=== PATIENT | female | born 1995 | race Caucasian/White ===

== ENCOUNTER 2016-07-20 13:45 | Emergency (ER) | payer BC ==
[2016-07-20 14:12] VITALS: BP 108/67
--- NOTE | 2016-07-20 14:36 | UC ---
General HPI - HPI Summary HPI Summary: two days of sore throat. no fever. no cough. she has had strep throat 4x this past year with the last episode may treated with penicillin. swallowing makes it worse. - History of Current Complaint Chief Complaint: UCRespiratory Stated Complaint: SORE THROAT Time Seen by Provider: 07/20/16 14:07 Hx Obtained From: Patient Onset Severity: Moderate Current Severity: Moderate - Allergy/Home Medications Allergies/Adverse Reactions: Allergies Allergy/AdvReac Type Severity Reaction Status Date / Time Sulfa Antibiotics Allergy Intermediate Rash Verified 07/20/16 14:12 Home Medications: Home Medications Norgestrel & Ethinyl Estradiol [Cryselle-28] 1 tab PO DAILY 07/20/16 [History Confirmed 07/20/16] PMH/Surg Hx/FS Hx/Imm Hx Endocrine History Of: Denies: Diabetes Cardiovascular History Of: Denies: Congestive Heart Failure - Surgical History Surgical History: Yes Surgery Procedure, Year, and Place: right shoulder - Social History Occupation: Student Alcohol Use: Occasionally Substance Use Type: None Smoking Status (MU): Never Smoked Tobacco - Immunization History Most Recent Tetanus Shot: 2006 Review of Systems ENT: Sore Throat All Other Systems Reviewed And Are Negative: Yes Physical Exam Triage Information Reviewed: Yes Appearance: Well-Appearing, No Pain Distress, Well-Nourished Vital Signs: Initial Vital Signs Temp 99.2 F 07/20/16 14:08 Pulse 79 07/20/16 14:08 Resp 16 07/20/16 14:08 BP 108/67 07/20/16 14:08 Pulse Ox 100 07/20/16 14:08 Vital Signs Reviewed: Yes Eye Exam: Normal Eyes: Positive: Conjunctiva Clear ENT: Positive: Hearing grossly normal, Pharyngeal erythema, Tonsillar swelling, Tonsillar exudate. Negative: Pharynx normal, Nasal congestion, TMs normal, TM bulging, TM dull, TM red - Left TM has ear tube in place., Trismus, Muffled/ hoarse voice Neck exam: Normal Neck: Positive: Supple, Nontender, No Lymphadenopathy Respiratory Exam: Normal Respiratory: Positive: Chest non-tender Cardiovascular Exam: Normal Cardiovascular: Positive: RRR. Negative: Tachycardia, Bradycardia Abdominal Exam: Normal Abdomen Description: Positive: Nontender, No Organomegaly Bowel Sounds: Positive: Present Musculoskeletal Exam: Normal Musculoskeletal: Positive: Strength Intact, No Edema Neurological Exam: Normal Neurological: Positive: Alert, Muscle Tone Normal Psychological Exam: Normal Skin Exam: Normal Skin: Positive: rashes Course/Dx - Course Course Of Treatment: strep positive 4x this year. augmentin. f/u with her ent. - Differential Dx - Multi-Symptom Provider Diagnoses: strep pharyngitis. Discharge - Discharge Plan Condition: Good Disposition: HOME Prescriptions: Amoxicillin/Clavulanate TAB* [Augmentin TAB 875*] 875 mg PO BID #14 tab Patient Education Materials: Strep Throat (ED) Referrals: Deedee Albert [Primary Care Provider] - Additional Instructions: follow up with your primary care doctor.
== END 2016-07-20 14:45 | disposition home or self-care (01) ==
LOC: UCCORT 13:45
DX: J02.0 Streptococcal pharyngitis (principal); Z88.2 Allergy status to sulfonamides
CPT/HCPCS: 87651; 99212; G0463

== ENCOUNTER 2023-10-02 05:27 | Inpatient (IN) ==
[2023-10-02] MEDS: Lactated Ringers 1000 ml BAG 1,000 ML IV SCH (06:30)
[2023-10-02 06:37] LABS: ABS Basophils 0.1 10^3/uL (0.0-0.1); ABS Eosinophils 0.2 10^3/uL (0.0-0.5); ABS Lymphocytes 2.4 10^3/uL (1.0-4.8); ABS Monocytes 0.9 10^3/uL (0.0-0.9); ABS Neutrophils 8.1 10^3/uL (1.5-7.6); ABS Nucleated RBC 0.01 10^3/ul; Eosinophil % 1.5 %; Hematocrit 34.9 % (35-45); Hemoglobin 12.2 g/dL (11.5-14.3); Lymphocyte % 20.1 %; Mean Corpuscular Hemoglobin 33.7 pg (27-33); Mean Corpuscular Volume 96.3 fL (80-97); Mean Platelet Volume 8.4 fL (7.5-11.2); Platelet Count 283 10^3/uL (150-450); Red Blood Count 3.63 10^6/uL (3.63-4.92); Red Cell Distribution Width 13.2 % (12-17); White Blood Count 11.7 10^3/uL (3.8-11.8)
[2023-10-02] MEDS ORDERED: Ondansetron 4 mg VIAL 2 MG/ML 2 ml VIAL ONE (07:14)
[2023-10-02] MEDS ORDERED: Morphine PF AMP (0.5MG/ML) 5 MG/10 ML AMP ONE (07:15)
[2023-10-02] MEDS ORDERED: Oxytocin 10 UNITS/ML 1 ML VIAL ONE (07:15)
[2023-10-02] MEDS ORDERED: fentaNYL 100 mcg/2 ml 50 MCG/ML VIAL ONE (07:15)
[2023-10-02] MEDS: Lactated Ringers 1000 ml BAG 1,000 ML IV ONE (07:30)
[2023-10-02] MEDS: Sodium Citrate/Citric Acid LIQ 15 ML UDC PO ONE (07:45)
[2023-10-02] MEDS: ceFOXitin 2 GM IVPREMIX 2 GM/50 ML BAG IVPB ONE (08:34)
[2023-10-02] MEDS ORDERED: Dexamethasone IV 4 MG/ML VIAL 1 ml VIAL ONE (08:38)
[2023-10-02] MEDS ORDERED: Acetaminophen IV 1 GM/100ML 1,000 MG/100 ML BAG IV ONE (08:44)
[2023-10-02] MEDS ORDERED: Prochlorperazine 5 mg/ml 2 ml VIAL (10 mg) ONE (09:14)
[2023-10-02] MEDS ORDERED: Acetaminophen IV 1 GM/100ML 1,000 MG/100 ML BAG IV PRN (09:23)
[2023-10-02] MEDS ORDERED: Metoclopramide 5 MG/ML VIAL (10 mg) IV PRN (09:23)
[2023-10-02] MEDS ORDERED: Naloxone 0.4 mg VIAL 0.4 mg/ml 1 ml VIAL IV PUSH PRN (09:23)
[2023-10-02] MEDS ORDERED: Ondansetron 4 mg VIAL 2 MG/ML 2 ml VIAL IV PRN (09:23)
[2023-10-02] MEDS: Buffered Lidocaine 1% SYRIN 1 ml INTRADERM ONE (10:10)
[2023-10-02 10:51] LABS: Urine Appearance Clear; Urine Bilirubin Negative (Negative); Urine Blood Negative (Negative); Urine Color Colorless; Urine Glucose Negative (Negative); Urine Ketones Negative (Negative); Urine Nitrite Negative (Negative); Urine Protein Negative (Negative); Urine Specific Gravity 1.005 (1.002-1.030); Urine Urobilinogen Negative (Negative)
[2023-10-02] MEDS ORDERED: Witch Hazel PAD JAR TOPICAL PRN (11:04)
[2023-10-02] MEDS ORDERED: Glycerin ADULT 2.4 gm SUPP PR PRN (11:04)
[2023-10-02] MEDS ORDERED: Dibucaine 1% OINT 28.35 GM TUBE PR PRN (11:04)
[2023-10-02 11:19] LABS: Urine Benzodiazepine Screen None Detected (None Detect); Urine Cannabinoids Screen None Detected (None Detect); Urine Opiates Screen None Detected (None Detect)
[2023-10-02] MEDS ORDERED: Lactated Ringers 1000 ml BAG 1,000 ML IV SCH (12:00)
[2023-10-02] MEDS: Oxytocin in LR 20,000 MILLI.UNIT/1,000 ML BAG IV SCH (13:00)
[2023-10-03 06:46] LABS: ABS Basophils 0.1 10^3/uL (0.0-0.1); ABS Eosinophils 0.1 10^3/uL (0.0-0.5); ABS Lymphocytes 3.2 10^3/uL (1.0-4.8); ABS Monocytes 1.3 10^3/uL (0.0-0.9); ABS Neutrophils 13.8 10^3/uL (1.5-7.6); Eosinophil % 0.3 %; Hematocrit 26.6 % (35-45); Lymphocyte % 17.2 %; Mean Corpuscular Hgb Conc 33.9 g/dL (31-36); Mean Corpuscular Volume 97.2 fL (80-97); Platelet Count 253 10^3/uL (150-450); Red Blood Count 2.73 10^6/uL (3.63-4.92); Red Cell Distribution Width 13.2 % (12-17); White Blood Count 18.4 10^3/uL (3.8-11.8)
[2023-10-05 07:16] VITALS: BP 117/76
== END 2023-10-05 12:29 | disposition home or self-care (01) | DRG 540 ==
LOC: MCHOB 05:27
PROVIDERS: ADMIT Obstetrics & Gynecology; ATTEND Obstetrics & Gynecology